=== PATIENT | male | born 1960 | race Caucasian/White ===

== ENCOUNTER → 2017-12-20 | Day surgery (SDC) | payer BC ==
[~2017-12-20] MED LIST: CHOL100013 PO; HYDR12.58 PO; INSU100C4 SQ; INSU100V13 SQ; INSU100V8; IV RINGERS,LACTATED 1000ML 1,000 ML IV SCH; LIDOCAINE 2% PF 2ML VIAL. ONE; LISI-338; LOVA40TA2 PO; PROPOFOL 20 ML IV ONE
[2017-12-20 10:35] VITALS: BP 132/86
--- NOTE | 2017-12-24 09:09 | PATHOLOGY ---
[facility] Accession Number: [id number] . 01 Material submitted: . PART A: HEPATIC FLEXURE POLYP PART B: RECTUM POLYP . 01 Clinician provided ICD-10: Z12.11 . 01 Clinical history: . Screening . 02 Diagnosis: A. Colon biopsies, hepatic flexure polyp: - Tubular adenoma. . B. Colorectal biopsy, rectal polyp: - Consistent with hyperplastic polyp. . (JPM:flying instructor; 12/23/2017) MBR/12/24/2017 . 02 Comment: There is no high grade dysplasia or evidence of malignancy. . (JPM:flying instructor; 12/23/2017) . 02 Electronically signed: . Rich Petersen MD, Pathologist NPI- [id number] . 01 Gross description: . A. Received in formalin labeled "Suresh Wadsworth Jr, hepatic flexure polyp," are 2 segments of [place] soft tissue measuring 0.9 x 0.3 x 0.3 cm in aggregate dimensions and ranging from 0.4 to 0.5 cm in maximum dimension. The specimen is submitted entirely in cassette A1. . B. Received in formalin labeled "Suresh Wadsworth Jr, rectum polyp," is a single segment of [place] soft tissue measuring 0.3 cm in maximum dimension. The specimen is entirely submitted in cassette B1. (TSD; 12/20/2017) TOB/TOB . 02 Pathologist provided ICD-10: D12.3, K63.5, K62.1 . 02 CPT . 922510, [id number] Specimen Comment: A courtesy copy of this report has been sent to Specimen Comment: [phone], . Specimen Comment: Report sent to / DR STACK Specimen Comment: A duplicate report has been generated due to demographic updates. Performed at: 01 [facility] [address] [facility] [address], [place] [id number] MD Elie Hills MD Phone: [phone] Performed at: 02 [facility] [address] [place], [place] [id number] MD Rich Petersen MD Phone: [phone]
== END | disposition home or self-care (01) ==
LOC: SURG 08:27
PROVIDERS: ATTEND Internal Medicine Gastroenterology
DX: D12.3 Benign neoplasm of transverse colon (principal); K62.1 Rectal polyp; K64.0 First degree hemorrhoids; I10 Essential (primary) hypertension; E78.00 Pure hypercholesterolemia, unspecified; F17.200 Nicotine dependence, unspecified, uncomplicated; F17.210 Nicotine dependence, cigarettes, uncomplicated; E11.9 Type 2 diabetes mellitus without complications; Z79.899 Other long term (current) drug therapy; Z79.4 Long term (current) use of insulin
CPT/HCPCS: 45380; 45385; 82962; 88305; J2001; J2704